=== PATIENT | female | born 1940 | race Caucasian/White ===

== ENCOUNTER → 2016-03-31 | Outpatient (CLI) | payer MEDICARE, BC ==
[2016-03-31 10:39] LABS: Calcium 9.8 mg/dL (8.4-10.2); Potassium 4.9 mmol/L (3.5-5.1); Total Bilirubin 0.6 mg/dL (0.2-1.3)
== END | disposition home or self-care (01) ==
LOC: LABWHC1 09:19
PROVIDERS: ATTEND Internal Medicine Endocrinology, Diabetes & Metabolism
DX: E11.65 Type 2 diabetes mellitus with hyperglycemia (principal)
CPT/HCPCS: 36415; 80053; 80061; 82043

== ENCOUNTER 2016-06-08 10:39 | Inpatient (IN) | payer MEDICARE, BC ==
[2016-06-08] MEDS ORDERED: IPRATROPIUM-ALBUTEROL 3 ML NEB INHALATION STA (11:06)
[2016-06-08] MEDS ORDERED: methylPREDNISolone SOD SUCCI 125 MG/2 ML VIAL IV STA (11:06)
--- NOTE | 2016-06-08 11:10 | ED ---
General Adult HPI - General Chief complaint: Upper Respiratory Infection Stated complaint: shortness of breath Time Seen by Provider: 06/08/16 11:00 Source: patient, RN notes reviewed Mode of arrival: ambulatory Limitations: no limitations - History of Present Illness Initial comments: Patient is a pleasant 76-year-old female presenting to the emergency Department with cough and difficulty breathing. Patient has chronic COPD with similar symptoms. Symptoms have progressed over the past couple of weeks. No fevers. No chest pain. No leg pain or leg swelling. Patient did see her doctor this morning who placed her on oxygen advised her to come to the emergency department. - Related Data Home Medications Medication Instructions Recorded Confirmed Diltiazem HCl [Diltiazem 24Hr ER] 180 mg PO Q24H 06/08/16 06/08/16 Esomeprazole Magnesium [NexIUM] 20 mg PO DAILY 06/08/16 06/08/16 Glimepiride [Glimepiride] 1 mg PO DAILY 06/08/16 06/08/16 Meloxicam 15 mg PO DAILY 06/08/16 06/08/16 Montelukast [Singulair] 10 mg PO DAILY 06/08/16 06/08/16 Sertraline [Zoloft] 50 mg PO DAILY 06/08/16 06/08/16 Simvastatin [Zocor] 80 mg PO HS 06/08/16 06/08/16 Warfarin Sodium [Coumadin] 5 mg PO DAILY 06/08/16 06/08/16 Allergies Allergy/AdvReac Type Severity Reaction Status Date / Time No Known Allergies Allergy Verified 06/08/16 10:59 Review of Systems ROS Statement: Those systems with pertinent positive or pertinent negative responses have been documented in the HPI. ROS Other: All systems not noted in ROS Statement are negative. Constitutional: Denies: fever, chills Eyes: Denies: eye pain ENT: Denies: ear pain Respiratory: Reports: cough, dyspnea Cardiovascular: Denies: chest pain Endocrine: Reports: fatigue Gastrointestinal: Denies: abdominal pain Genitourinary: Denies: dysuria Musculoskeletal: Denies: back pain Skin: Denies: rash Neurological: Denies: weakness Past Medical History Past Medical History: Asthma, COPD, Diabetes Mellitus, Hyperlipidemia, Hypertension History of Any Multi-Drug Resistant Organisms: None Reported Past Surgical History: Appendectomy, Back Surgery, Joint Replacement Past Psychological History: No Psychological Hx Reported Smoking Status: Never smoker Past Alcohol Use History: None Reported Past Drug Use History: None Reported General Exam Limitations: no limitations General appearance: alert, in no apparent distress Head exam: Present: atraumatic Eye exam: Present: normal appearance Neck exam: Present: normal inspection Respiratory exam: Present: decreased breath sounds Cardiovascular Exam: Present: regular rate, normal rhythm GI/Abdominal exam: Present: soft. Absent: tenderness Extremities exam: Present: normal inspection. Absent: pedal edema, calf tenderness Neurological exam: Present: alert Psychiatric exam: Present: normal affect, normal mood Skin exam: Absent: rash Course Vital Signs 06/08/16 06/08/16 06/08/16 10:53 11:40 11:54 Temperature 97.0 F L Pulse Rate 87 110 H 116 H Respiratory 18 Rate Blood Pressure 113/65 O2 Sat by Pulse 98 Oximetry Medical Decision Making - Medical Decision Making Patient reevaluated and resting comfortably in bed. Mild improvement with nebulizer. Lungs with continued decreased air exchange. Case discussed with Dr. Burns, who will admit for Dr. Rader. - Lab Data Result diagrams: 06/08/16 11:55 06/08/16 11:55 Lab Results 06/08/16 06/08/16 06/08/16 Range/Units 11:55 11:55 11:55 WBC 7.6 (3.8-10.6) k/uL RBC 4.38 (3.80-5.40) m/uL Hgb 13.1 (11.4-16.0) gm/dL Hct 40.0 (34.0-46.0) % MCV 91.2 (80.0-100.0) fL MCH 29.9 (25.0-35.0) pg MCHC 32.8 (31.0-37.0) g/dL RDW 13.6 (11.5-15.5) % Plt Count 188 (150-450) k/uL Neutrophils % 69 % Lymphocytes % 20 % Monocytes % 7 % Eosinophils % 1 % Basophils % 1 % Neutrophils # 5.3 (1.3-7.7) k/uL Lymphocytes # 1.5 (1.0-4.8) k/uL Monocytes # 0.5 (0-1.0) k/uL Eosinophils # 0.1 (0-0.7) k/uL Basophils # 0.1 (0-0.2) k/uL PT 16.9 H (9.0-12.0) sec INR 1.8 (<1.1) APTT 30.4 H (22.0-30.0) sec Sodium 141 (137-145) mmol/L Potassium 4.8 (3.5-5.1) mmol/L Chloride 106 (98-107) mmol/L Carbon Dioxide 18 L (22-30) mmol/L Anion Gap 17 mmol/L BUN 29 H (7-17) mg/dL Creatinine 2.35 H (0.52-1.04) mg/dL Est GFR (MDRD) Af Amer 24 (>60 ml/min/1.73 sqM) Est GFR (MDRD) Non-Af 20 (>60 ml/min/1.73 sqM) Glucose 156 H (74-99) mg/dL Calcium 10.2 (8.4-10.2) mg/dL Total Bilirubin 0.6 (0.2-1.3) mg/dL AST 29 (14-36) U/L ALT 25 (9-52) U/L Alkaline Phosphatase 150 H (38-126) U/L Total Creatine Kinase (30-135) U/L CK-MB (CK-2) (0.0-2.4) ng/mL CK-MB (CK-2) Rel Index Troponin I (0.000-0.034) ng/mL Total Protein 7.3 (6.3-8.2) g/dL Albumin 4.5 (3.5-5.0) g/dL 06/08/16 Range/Units 11:55 WBC (3.8-10.6) k/uL RBC (3.80-5.40) m/uL Hgb (11.4-16.0) gm/dL Hct (34.0-46.0) % MCV (80.0-100.0) fL MCH (25.0-35.0) pg MCHC (31.0-37.0) g/dL RDW (11.5-15.5) % Plt Count (150-450) k/uL Neutrophils % % Lymphocytes % % Monocytes % % Eosinophils % % Basophils % % Neutrophils # (1.3-7.7) k/uL Lymphocytes # (1.0-4.8) k/uL Monocytes # (0-1.0) k/uL Eosinophils # (0-0.7) k/uL Basophils # (0-0.2) k/uL PT (9.0-12.0) sec INR (<1.1) APTT (22.0-30.0) sec Sodium (137-145) mmol/L Potassium (3.5-5.1) mmol/L Chloride (98-107) mmol/L Carbon Dioxide (22-30) mmol/L Anion Gap mmol/L BUN (7-17) mg/dL Creatinine (0.52-1.04) mg/dL Est GFR (MDRD) Af Amer (>60 ml/min/1.73 sqM) Est GFR (MDRD) Non-Af (>60 ml/min/1.73 sqM) Glucose (74-99) mg/dL Calcium (8.4-10.2) mg/dL Total Bilirubin (0.2-1.3) mg/dL AST (14-36) U/L ALT (9-52) U/L Alkaline Phosphatase (38-126) U/L Total Creatine Kinase 64 (30-135) U/L CK-MB (CK-2) 0.4 (0.0-2.4) ng/mL CK-MB (CK-2) Rel Index 0.6 Troponin I <0.012 (0.000-0.034) ng/mL Total Protein (6.3-8.2) g/dL Albumin (3.5-5.0) g/dL - Radiology Data Radiology results: image reviewed (Chest x-ray shows no acute process) Disposition Clinical Impression: Acute exacerbation of COPD with asthma Disposition: ADMITTED IP TO THIS HOSP
[2016-06-08 12:10] LABS: Basophils # (A) 0.1 k/uL (0-0.2); Basophils % (A) 1 %; CHCM 33.1; Eosinophils # (A) 0.1 k/uL (0-0.7); Eosinophils % (A) 1 %; HDW 2.82; HGB 13.1 gm/dL (11.4-16.0); Luc # (Auto) 0.17; Luc % (Auto) 2; Lymphocytes # (A) 1.5 k/uL (1.0-4.8); Lymphocytes % (A) 20 %; MCH 29.9 pg (25.0-35.0); MCHC 32.8 g/dL (31.0-37.0); MCV 91.2 fL (80.0-100.0); Mean Platelet Volume 7.8; Monocytes # (A) 0.5 k/uL (0-1.0); Monocytes % (A) 7 %; Neutrophils # (A) 5.3 k/uL (1.3-7.7); Neutrophils % (A) 69 %; RBC 4.38 m/uL (3.80-5.40); RDW 13.6 % (11.5-15.5); WBC 7.6 k/uL (3.8-10.6); WBC (Perox) 7.98
[2016-06-08 12:39] LABS: Calcium 10.2 mg/dL (8.4-10.2); Potassium 4.8 mmol/L (3.5-5.1); Total Bilirubin 0.6 mg/dL (0.2-1.3); Total Protein 7.3 g/dL (6.3-8.2)
[2016-06-08 12:40] LABS: Creatine Kinase 64 U/L (30-135)
[2016-06-08 12:44] LABS: INR 1.8 (<1.1); Partial Thromboplastin Time 30.4 sec (22.0-30.0); Prothrombin Time 16.9 sec (9.0-12.0)
--- NOTE | 2016-06-08 12:47 | XR ---
EXAMINATION TYPE: XR chest 2V DATE OF EXAM: 06/08/2016 12:07 PM COMPARISON: NONE HISTORY: Cough for 2 weeks. Shortness of breath. TECHNIQUE: Frontal and lateral views of the chest are obtained. FINDINGS: There is underlying emphysematous change. There is no focal air space opacity, pleural eff usion, or pneumothorax seen. The cardiac silhouette size is enlarged with atherosclerotic thoracic a alexandra. The osseous structures are demineralized. Exaggerated kyphosis is present. IMPRESSION: Chronic emphysematous change and cardiomegaly without acute pulmonary process.
[2016-06-08 12:52] LABS: Creatine Kinase MB 0.4 ng/mL (0.0-2.4); Troponin I <0.012 ng/mL (0.000-0.034)
[2016-06-08] MEDS ORDERED: IPRATROPIUM-ALBUTEROL 3 ML NEB INHALATION PRN (13:02)
[2016-06-08] MEDS: IPRATROPIUM-ALBUTEROL 3 ML NEB INHALATION SCH ×3 (15:44→20:36)
[2016-06-08 17:13] LABS: Glucose,Whole Blood 363 mg/dL (75-99)
[2016-06-08] MEDS: methylPREDNISolone SOD SUCCI 125 MG/2 ML VIAL IV SCH (17:36)
[2016-06-08] MEDS: INSULIN LISPRO (humaLOG) 300 UNIT/3 ML VIAL SQ SCH ×2 (17:47→21:11)
[2016-06-08] MEDS ORDERED: ALPRAZolam 0.25 MG TAB PO PRN (19:33)
[2016-06-08 20:19] LABS: Glucose,Whole Blood 489 mg/dL (75-99)
[2016-06-08 20:20] LABS: Glucose,Whole Blood 468 mg/dL (75-99)
[2016-06-08] MEDS: SYMBICORT 160-4.5 MCG INHALER INHALATION SCH (20:36)
[2016-06-08] MEDS: ATORVASTATIN 40 MG TAB PO SCH (20:37)
[2016-06-08] MEDS: DILTIAZEM CD 180 MG CAP.ER.24H PO SCH (20:37)
[2016-06-08] MEDS ORDERED: TEMAZEPAM 15 MG CAP PO PRN (21:00)
[2016-06-08] MEDS ORDERED: LEVOFLOXACIN 500MG-D5W PMX 500 MG in DEXTROSE/WATER 1 100ML.BAG IVPB SCH (21:00)
[2016-06-08] MEDS ORDERED: INSULIN REGULAR BOLUS (FROM DRIP BAG) IV ONE (21:01)
[2016-06-08] MEDS ORDERED: INSULIN REGULAR 100 UNIT/ML VIAL IV ONE (21:09)
[2016-06-08] MEDS ORDERED: INSULIN REGULAR 100 UNIT in SODIUM CHLORIDE 0.9% 100 ML IV SCH (21:30)
[2016-06-08 22:37] LABS: Glucose,Whole Blood 420 mg/dL (75-99)
[2016-06-08 23:22] LABS: Glucose,Whole Blood 381 mg/dL (75-99)
[2016-06-08 23:30] LABS: Glucose,Whole Blood 346 mg/dL (75-99)
[2016-06-09 00:20] LABS: Glucose,Whole Blood 319 mg/dL (75-99)
[2016-06-09] MEDS: methylPREDNISolone SOD SUCCI 125 MG/2 ML VIAL IV SCH ×3 (00:39→11:18)
[2016-06-09 00:50] LABS: Glucose,Whole Blood 258 mg/dL (75-99)
[2016-06-09 00:51] LABS: Appearance,Urine Clear (Clear); Bacteria,Urine Many /hpf; Bilirubin,Urine Negative (Negative); Glucose,Urine (UA) 4+ (Negative); Ketones,Urine Negative (Negative); Leukocyte Esterase,Urine Small (Negative); Mucus,Urine Rare /hpf; Nitrite,Urine Positive (Negative); PH, Urine 5.5 (5.0-8.0); Particle Count 8579; Protein,Urine 1+ (Negative); RBC,Urine 1 /hpf (0-5); Squamous Epithelial Cell,Urine <1 /hpf (0-4); UA Billing (MACRO vs. MICRO) MICRO; Urobilinogen,Urine <2.0 mg/dL (<2.0); WBC,Urine 11 /hpf (0-5)
[2016-06-09 01:22] LABS: Glucose,Whole Blood 247 mg/dL (75-99)
[2016-06-09 03:20] LABS: Glucose,Whole Blood 178 mg/dL (75-99)
[2016-06-09 05:16] LABS: Glucose,Whole Blood 185 mg/dL (75-99)
[2016-06-09] MEDS: IPRATROPIUM-ALBUTEROL 3 ML NEB INHALATION SCH ×4 (07:11→19:48)
[2016-06-09] MEDS: SYMBICORT 160-4.5 MCG INHALER INHALATION SCH ×2 (07:11→19:48)
[2016-06-09 07:20] LABS: Glucose,Whole Blood 200 mg/dL (75-99)
[2016-06-09] MEDS ORDERED: INSULIN LISPRO (humaLOG) 300 UNIT/3 ML VIAL SQ SCH (07:30)
--- NOTE | 2016-06-09 08:21 | HP ---
DATE OF ADMISSION: The chief complaint is shortness of breath. HISTORY OF PRESENT ILLNESS: This is a 76-year-old woman with the past medical history of asthma, COPD, diabetes, hypertension, hyperlipidemia, history of DJD, history of macular degeneration, appendectomy, back surgery, being followed by Dr. Barlow in the outpatient setting, was having shortness of breath and cough. The patient came to [facility] and admitted her for further evaluation. Chest x-ray showed no evidence of pneumonia. The patient apparently was sick for the last 2 weeks and patient has taken [id number] flu medicine according to her. There is no history of any fever, rigors or chills. No history of headache, loss of consciousness or seizures. PAST MEDICAL HISTORY: History of asthma, COPD, diabetes mellitus, hypertension, hyperlipidemia, history of DJD, history of macular degeneration. Medications prior to admission include Coumadin 5 mg p.o. daily, Zocor 20 mg q.h.s., Zoloft 50 mg daily, Singulair 10 mg daily, Nexium 20 mg p.o. daily, Meloxicam 50 mg p.o. daily, Glimepiride 1 mg p.o. daily, diltiazem 24HR 180 mg p.o. q.24 hours. Allergies are none. FAMILY HISTORY: No history of heart disease or strokes in the family. SOCIAL HISTORY: No history smoking, alcohol intake. REVIEW OF SYSTEMS: ENT: No diminished hearing, diminished vision. CARDIOVASCULAR SYSTEM: No angina or palpitations. RESPIRATORY: As mentioned earlier. GI: As mentioned earlier. : No dysuria. NERVOUS SYSTEM: No numbness or weakness. ALLERGY/IMMUNOLOGY: No asthma or hayfever. MUSCULOSKELETAL: As mentioned earlier. HEMATOLOGY/ONCOLOGY: No history of anemia. ENDOCRINE: History of diabetes, no hypothyroidism. CONSTITUTIONAL: Negative. DERMATOLOGY: Negative. RHEUMATOLOGY: Negative. PSYCHIATRY: As mentioned earlier. PHYSICAL EXAM: GENERAL EXAMINATION: Pulse 106, blood pressure 133/79, respirations 18, temperature 98.4, pulse ox 94% on 3 L. HEENT: Conjunctivae normal. NECK: No jugular venous distension. CARDIOVASCULAR SYSTEM: S1, S2, muffled. RESPIRATORY: Breath sounds diminished at the bases. Bilateral scattered rhonchi, no crackles. ABDOMEN: Soft, nontender, no mass palpable. LEGS: No edema, no swelling. NERVOUS SYSTEM: Higher functions as mentioned earlier, moves all 4 limbs, no focal deficits. LYMPHATICS: No lymph node enlargement in the neck, axillae or groin. SKIN: No ulcer, rash bleeding. Labs are CBC within normal limits. INR 1.8. Creatinine is 2.35, the baseline creatinine is 1.43. Glucose was 360. ASSESSMENT: 1. Chronic obstructive pulmonary disease acute exacerbation, with acute purulent tracheobronchitis. 2. Renal failure, possible acute renal failure with acute tubular necrosis prerenal superimposed on chronic renal failure stage III possibly. 3. Coumadin monitoring. 4. History of asthma. 5. History of diabetes mellitus type 2. 6. Hypertension. 7. Hyperlipidemia. 8. History of macular degeneration. 9. History of appendectomy. 10. History of degenerative joint disease. 11. FULL CODE. RECOMMENDATION: In this 76-year-old woman who presented with multiple complex medical issues, will monitor the patient closely. Continue with the current medications. Continue with the symptomatic treatment. Will initiate bronchodilators, empiric antibiotics, IV steroids. Monitor blood sugars closely. We will cautiously avoid nephrotoxic medications. Continue with the current medications and will consult Dr. Barlow, Dr. Long. Further recommendations to follow.
[2016-06-09] MEDS ORDERED: OSELTAMIVIR 75 MG CAP PO SCH (09:00)
[2016-06-09 09:04] LABS: Basophils % (A) 0 %; CH 29.7; CHCM 32.9; Eosinophils % (A) 0 %; HCT 37.4 % (34.0-46.0); HDW 2.81; HGB 12.6 gm/dL (11.4-16.0); Luc # (Auto) 0.04; Luc % (Auto) 0; Lymphocytes # (A) 0.7 k/uL (1.0-4.8); Lymphocytes % (A) 8 %; MCH 30.7 pg (25.0-35.0); MCHC 33.8 g/dL (31.0-37.0); MCV 90.8 fL (80.0-100.0); Mean Platelet Volume 6.8; Monocytes # (A) 0.2 k/uL (0-1.0); Monocytes % (A) 2 %; Neutrophils # (A) 7.8 k/uL (1.3-7.7); Neutrophils % (A) 90 %; RBC 4.11 m/uL (3.80-5.40); RDW 13.2 % (11.5-15.5); WBC 8.7 k/uL (3.8-10.6); WBC (Perox) 9.38
[2016-06-09] MEDS: SERTRALINE 50 MG TAB PO SCH (09:06)
[2016-06-09] MEDS: PANTOPRAZOLE 40 MG TABLET PO SCH (09:06)
[2016-06-09] MEDS: MONTELUKAST 10 MG TAB PO SCH (09:06)
[2016-06-09] MEDS: GLIMEPIRIDE 1 MG TAB PO SCH (09:06)
[2016-06-09 09:14] LABS: INR 1.7 (<1.1); Prothrombin Time 16.2 sec (9.0-12.0)
[2016-06-09 09:15] LABS: Glucose,Whole Blood 399 mg/dL (75-99)
[2016-06-09 09:15] LABS: Calcium 10.2 mg/dL (8.4-10.2); Potassium 4.2 mmol/L (3.5-5.1)
[2016-06-09 11:15] LABS: Glucose,Whole Blood 343 mg/dL (75-99)
--- NOTE | 2016-06-09 12:03 | P.CNPUL ---
History of Present Illness Consult date: 06/09/16 Requesting physician: Luis Burns Reason for consult: dyspnea Chief complaint: Shortness of breath History of present illness: This is a very pleasant 76-year-old female patient who follows with Dr. Barlow as her primary care physician. She has a history of chronic bronchial asthma, diabetes mellitus, hyperlipidemia, hypertension and mild paroxysmal atrial fibrillation. She is a lifelong nonsmoker. She presented to our office yesterday after 2 weeks of shortness of breath, cough congestion, weakness. There she was sent to the emergency room. Her chest x-ray did not reveal any acute pulmonary process. She was maintaining O2 saturations in the high 90s on room air. She's been afebrile. Tachycardic. She is found to be influenza A positive. Her urinalysis reveals positive nitrates and many bacteria and elevated WBCs. He denies any UTI symptoms. She denies any nausea, vomiting or diarrhea. She has been initiated on Levaquin, IV Solu-Medrol, Symbicort and short acting bronchodilators. She was started on Tamiflu and she is feeling better today as compared to yesterday. No worsening shortness of breath, cough or congestion. Feeling stronger. Review of Systems 14 point review of system was conducted. All negative other than as mentioned in the HPI. Past Medical History Past Medical History: Asthma, COPD, Diabetes Mellitus, Hyperlipidemia, Hypertension, Osteoarthritis (OA) Additional Past Medical History / Comment(s): MAC DEGENERATION, "HEART BEATS FAST AT TIMES-I TAKE MEDICATION FOR IT" History of Any Multi-Drug Resistant Organisms: None Reported Past Surgical History: Appendectomy, Back Surgery, Joint Replacement Additional Past Surgical History / Comment(s): MARCIE KNEE REPALCMENTS, MARCIE CATARACTS, BLEPHROPLASTY Past Anesthesia/Blood Transfusion Reactions: No Reported Reaction Past Psychological History: No Psychological Hx Reported Additional Psychological History / Comment(s): PT LIVES IN OWN SINGLE LEVEL HOME GARY HAS E [employer] STEPS. LIVES WITH A FRIEND THAT HELPS HER OUT D/T POOR VISION. PT ISINDEPENDANT, NO OUTSDIE SERVICES. HAS A NEBULIZER AT HOME. PT WORKED 28 YEARS FOR [employer]. Smoking Status: Never smoker Past Alcohol Use History: None Reported Past Drug Use History: None Reported Medications and Allergies Home Medications Medication Instructions Recorded Confirmed Type Diltiazem HCl [Diltiazem 24Hr ER] 180 mg PO Q24H 06/08/16 06/08/16 History Esomeprazole Magnesium [NexIUM] 20 mg PO DAILY 06/08/16 06/08/16 History Glimepiride [Glimepiride] 1 mg PO DAILY 06/08/16 06/08/16 History Meloxicam 15 mg PO DAILY 06/08/16 06/08/16 History Montelukast [Singulair] 10 mg PO DAILY 06/08/16 06/08/16 History Sertraline [Zoloft] 50 mg PO DAILY 06/08/16 06/08/16 History Simvastatin [Zocor] 80 mg PO HS 06/08/16 06/08/16 History Warfarin Sodium [Coumadin] 5 mg PO DAILY 06/08/16 06/08/16 History Allergies Allergy/AdvReac Type Severity Reaction Status Date / Time No Known Allergies Allergy Verified 06/08/16 10:59 Physical Exam Vitals: Vital Signs Temp Pulse Pulse Pulse Resp BP BP 06/09/16 11:02 94 06/09/16 10:52 92 06/09/16 08:00 20 06/09/16 07:21 94 06/09/16 07:11 94 06/09/16 07:00 96.9 F L 112 H 20 153/65 06/09/16 00:00 117 H 16 06/08/16 23:00 97.6 F 117 H 16 149/90 06/08/16 20:50 100 06/08/16 20:36 100 06/08/16 17:06 106 H 06/08/16 16:55 106 H 06/08/16 16:00 110 H 20 06/08/16 15:49 98.4 F 110 H 18 133/79 06/08/16 13:35 98.3 F 102 H 18 187/81 Pulse Ox 06/09/16 11:02 06/09/16 10:52 06/09/16 08:00 06/09/16 07:21 06/09/16 07:11 06/09/16 07:00 96 06/09/16 00:00 06/08/16 23:00 95 06/08/16 20:50 06/08/16 20:36 06/08/16 17:06 06/08/16 16:55 06/08/16 16:00 06/08/16 15:49 95 06/08/16 13:35 97 Intake and Output 06/08/16 06/09/16 06/09/16 22:59 06:59 14:59 Intake Total 17.5 67.101 16.399 Balance 17.5 67.101 16.399 Intake: Intake, IV Titration 17.5 67.101 16.399 Amount Insulin Regular 100 unit 17.5 67.101 16.399 In Sodium Chloride 0.9% 100 ml @ Titrate IV .Q0M [facility] Rx#:[id number] Other: Voiding Method Toilet Toilet Toilet # Voids 1 2 # Bowel Movements 1 Weight 87.543 kg GENERAL EXAM: Alert, active, comfortable in no apparent distress. HEAD: Normocephalic. EYES: Normal reaction of pupils, equal size. Macular degeneration. NOSE: Clear with pink turbinates. THROAT: No erythema or exudates. NECK: No masses, no JVD. CHEST: No chest wall deformity. LUNGS: Equal air entry with no crackles, wheeze, rhonchi or dullness. CVS: S1 and S2 normal with no audible murmurs, regular rhythm. ABDOMEN: No hepatosplenomegaly, normal bowel sounds, no guarding or rigidity. SPINE: No scoliosis or deformity SKIN: No rashes CENTRAL NERVOUS SYSTEM: No focal deficits, tone is normal in all 4 extremities. Extremities: There is no significant peripheral edema. No clubbing, no cyanosis. Peripheral pulses are intact. Results - Laboratory Findings CBC and BMP: 06/09/16 08:12 06/09/16 08:12 PT/INR, D-dimer PT 16.2 sec (9.0-12.0) H 06/09/16 08:12 INR 1.7 (<1.1) 06/09/16 08:12 Abnormal lab findings: Abnormal Labs 06/08/16 06/08/16 06/08/16 17:08 19:37 20:17 Neutrophils # Lymphocytes # PT Carbon Dioxide BUN Creatinine Glucose POC Glucose (mg/dL) 363 H 489 H Urine Protein Urine Glucose (UA) Urine Blood Urine Nitrite Ur Leukocyte Esterase Urine WBC Urine Bacteria Urine Mucus Influenza Type A RNA Detected H 06/08/16 06/08/16 06/08/16 20:18 22:26 23:02 Neutrophils # Lymphocytes # PT Carbon Dioxide BUN Creatinine Glucose POC Glucose (mg/dL) 468 H 420 H 381 H Urine Protein Urine Glucose (UA) Urine Blood Urine Nitrite Ur Leukocyte Esterase Urine WBC Urine Bacteria Urine Mucus Influenza Type A RNA 06/08/16 06/09/16 06/09/16 23:28 00:01 00:22 Neutrophils # Lymphocytes # PT Carbon Dioxide BUN Creatinine Glucose POC Glucose (mg/dL) 346 H 319 H Urine Protein 1+ H Urine Glucose (UA) 4+ H Urine Blood Trace H Urine Nitrite Positive H Ur Leukocyte Esterase Small H Urine WBC 11 H Urine Bacteria Many H Urine Mucus Rare H Influenza Type A RNA 06/09/16 06/09/16 06/09/16 00:30 01:02 03:00 Neutrophils # Lymphocytes # PT Carbon Dioxide BUN Creatinine Glucose POC Glucose (mg/dL) 258 H 247 H 178 H Urine Protein Urine Glucose (UA) Urine Blood Urine Nitrite Ur Leukocyte Esterase Urine WBC Urine Bacteria Urine Mucus Influenza Type A RNA 06/09/16 06/09/16 06/09/16 05:04 07:17 08:12 Neutrophils # 7.8 H Lymphocytes # 0.7 L PT Carbon Dioxide BUN Creatinine Glucose POC Glucose (mg/dL) 185 H 200 H Urine Protein Urine Glucose (UA) Urine Blood Urine Nitrite Ur Leukocyte Esterase Urine WBC Urine Bacteria Urine Mucus Influenza Type A RNA 06/09/16 06/09/16 06/09/16 08:12 08:12 09:00 Neutrophils # Lymphocytes # PT 16.2 H Carbon Dioxide 16 L BUN 37 H Creatinine 1.81 H Glucose 270 H POC Glucose (mg/dL) 399 H Urine Protein Urine Glucose (UA) Urine Blood Urine Nitrite Ur Leukocyte Esterase Urine WBC Urine Bacteria Urine Mucus Influenza Type A RNA 06/09/16 11:05 Neutrophils # Lymphocytes # PT Carbon Dioxide BUN Creatinine Glucose POC Glucose (mg/dL) 343 H Urine Protein Urine Glucose (UA) Urine Blood Urine Nitrite Ur Leukocyte Esterase Urine WBC Urine Bacteria Urine Mucus Influenza Type A RNA - Diagnostic Findings Chest x-ray: image reviewed (No acute pulmonary process) Assessment and Plan Plan: Impression: #1 Acute exacerbation of chronic mild intermittent asthma complicated by influenza A. #2 Influenza A. #3 Acute renal failure secondary to dehydration, improved currently 1.81. #4 Diabetes mellitus, type II. #5 Hyperlipidemia. #6 Macular degeneration. #7 Paroxysmal atrial fibrillation, anticoagulated with warfarin and rate control with Cardizem. #8 Urinary tract infection, culture pending. Plan: The patient was seen and evaluated by Dr. Long. Her chest x-ray and labs were reviewed. We will continue with her current antibiotics, Symbicort, IV Solu-Medrol, short acting bronchodilators and Singulair. She is on Tamiflu. We 'll continue to hydrate the patient. She remains anticoagulated with warfarin. She is on Protonix for GI prophylaxis. We will increase her activity as tolerated. We will continue to follow make further recommendations based on her clinical status. Time with Patient: Greater than 30
[2016-06-09 13:18] LABS: Hemoglobin A1C 6.7 % (4.2-6.1)
[2016-06-09 13:26] LABS: Glucose,Whole Blood 264 mg/dL (75-99)
[2016-06-09 15:36] LABS: Glucose,Whole Blood 324 mg/dL (75-99)
[2016-06-09] MEDS ORDERED: INSULIN GLARGINE 100 UNIT/ML 10 ML VIAL SQ ONE (15:59)
[2016-06-09] MEDS: SODIUM CHLORIDE 0.9% 1,000 ML IV SCH (16:23)
[2016-06-09 17:40] LABS: Glucose,Whole Blood 331 mg/dL (75-99)
[2016-06-09] MEDS ORDERED: WARFARIN 5 MG TAB PO SCH (18:00)
[2016-06-09 20:26] LABS: Glucose,Whole Blood 391 mg/dL (75-99)
[2016-06-09] MEDS: ATORVASTATIN 40 MG TAB PO SCH (20:29)
[2016-06-09] MEDS: DILTIAZEM CD 180 MG CAP.ER.24H PO SCH (20:29)
[2016-06-09] MEDS: DOXYCYCLINE 50 MG CAP PO SCH (20:29)
[2016-06-09] MEDS ORDERED: INSULIN LISPRO (humaLOG) 300 UNIT/3 ML VIAL SQ ONE (20:39)
[2016-06-09] MEDS: INSULIN LISPRO (humaLOG) 300 UNIT/3 ML VIAL SQ SCH (20:43)
[2016-06-09] MEDS ORDERED: LEVOFLOXACIN 250MG-D5W PMX 250 MG in DEXTROSE/WATER 1 50ML.BAG IVPB SCH (21:00)
--- NOTE | 2016-06-09 22:38 | P.PN ---
Subjective Date of service 06/09/2016 Progress note being dictated for . Interval history: This is a 76-year-old female admitted with acute exacerbation of asthma, positive influenza A, dehydration with acute renal failure, and multiple other medical issues. Maintained on nebulized bronchodilators, steroids, Levaquin, Tamiflu. Feeling much better today, breathing better. Nonproductive cough. Maintaining O2 sats of 95% on 2 L nasal cannula. Afebrile. Creatinine improving, currently 1.81 Denies chest pain, palpitations, or increased in shortness of breath. UA noted, no urinary symptoms. Afebrile. Normal WBC. Anticoagulated on Coumadin, INR 1.7. Objective - Vital Signs Vital signs: Vital Signs Temp 96.9 F L 06/09/16 07:00 Pulse 96 06/09/16 15:45 Resp 20 06/09/16 08:00 BP 153/65 06/09/16 07:00 Pulse Ox 96 06/09/16 07:00 Intake & Output 06/08/16 06/09/16 06/09/16 18:59 06:59 18:59 Intake Total 84.601 16.399 Balance 84.601 16.399 Weight 87.543 kg Intake: Intake, IV Titration 84.601 16.399 Amount Insulin Regular 100 unit 84.601 16.399 In Sodium Chloride 0.9% 100 ml @ Titrate IV .Q0M [facility] Rx#:[id number] Other: Voiding Method Toilet Toilet Toilet # Voids 2 # Bowel Movements 1 - Exam PHYSICAL EXAM: VITAL SIGNS: As above GENERAL: [Sitting up in bed, no acute distress] HEENT: [Pupils equal conjunctiva normal.] NECK: [Supple, no JVD] RESPIRATORY EFFORT:[Normal] LUNGS: [Lungs clear, no wheezes crackles or rhonchi] CARDIOVASCULAR[regular S1 and S2, no murmurs, rubs or gallops] GI: [Abdomen soft, nontender, positive bowel sounds.] PSYCH: [Alert and oriented -3, mood and affect normal.] NEURO: [No focal deficits, moves all 4 extremities, strength and sensation grossly intact] - Labs CBC & Chem 7: 06/09/16 08:12 06/09/16 08:12 Labs: Abnormal Lab Results - Last 24 Hours (Table) 06/08/16 06/08/16 06/08/16 Range/Units 17:08 19:37 20:17 Neutrophils # (1.3-7.7) k/uL Lymphocytes # (1.0-4.8) k/uL PT (9.0-12.0) sec Carbon Dioxide (22-30) mmol/L BUN (7-17) mg/dL Creatinine (0.52-1.04) mg/dL Glucose (74-99) mg/dL POC Glucose (mg/dL) 363 H 489 H (75-99) mg/dL Hemoglobin A1c (4.2-6.1) % Urine Protein (Negative) Urine Glucose (UA) (Negative) Urine Blood (Negative) Urine Nitrite (Negative) Ur Leukocyte Esterase (Negative) Urine WBC (0-5) /hpf Urine Bacteria (None) /hpf Urine Mucus (None) /hpf Influenza Type A RNA Detected H (Not Detectd) 06/08/16 06/08/16 06/08/16 Range/Units 20:18 22:26 23:02 Neutrophils # (1.3-7.7) k/uL Lymphocytes # (1.0-4.8) k/uL PT (9.0-12.0) sec Carbon Dioxide (22-30) mmol/L BUN (7-17) mg/dL Creatinine (0.52-1.04) mg/dL Glucose (74-99) mg/dL POC Glucose (mg/dL) 468 H 420 H 381 H (75-99) mg/dL Hemoglobin A1c (4.2-6.1) % Urine Protein (Negative) Urine Glucose (UA) (Negative) Urine Blood (Negative) Urine Nitrite (Negative) Ur Leukocyte Esterase (Negative) Urine WBC (0-5) /hpf Urine Bacteria (None) /hpf Urine Mucus (None) /hpf Influenza Type A RNA (Not Detectd) 06/08/16 06/09/16 06/09/16 Range/Units 23:28 00:01 00:22 Neutrophils # (1.3-7.7) k/uL Lymphocytes # (1.0-4.8) k/uL PT (9.0-12.0) sec Carbon Dioxide (22-30) mmol/L BUN (7-17) mg/dL Creatinine (0.52-1.04) mg/dL Glucose (74-99) mg/dL POC Glucose (mg/dL) 346 H 319 H (75-99) mg/dL Hemoglobin A1c (4.2-6.1) % Urine Protein 1+ H (Negative) Urine Glucose (UA) 4+ H (Negative) Urine Blood Trace H (Negative) Urine Nitrite Positive H (Negative) Ur Leukocyte Esterase Small H (Negative) Urine WBC 11 H (0-5) /hpf Urine Bacteria Many H (None) /hpf Urine Mucus Rare H (None) /hpf Influenza Type A RNA (Not Detectd) 06/09/16 06/09/16 06/09/16 Range/Units 00:30 01:02 03:00 Neutrophils # (1.3-7.7) k/uL Lymphocytes # (1.0-4.8) k/uL PT (9.0-12.0) sec Carbon Dioxide (22-30) mmol/L BUN (7-17) mg/dL Creatinine (0.52-1.04) mg/dL Glucose (74-99) mg/dL POC Glucose (mg/dL) 258 H 247 H 178 H (75-99) mg/dL Hemoglobin A1c (4.2-6.1) % Urine Protein (Negative) Urine Glucose (UA) (Negative) Urine Blood (Negative) Urine Nitrite (Negative) Ur Leukocyte Esterase (Negative) Urine WBC (0-5) /hpf Urine Bacteria (None) /hpf Urine Mucus (None) /hpf Influenza Type A RNA (Not Detectd) 06/09/16 06/09/16 06/09/16 Range/Units 05:04 07:17 08:12 Neutrophils # (1.3-7.7) k/uL Lymphocytes # (1.0-4.8) k/uL PT (9.0-12.0) sec Carbon Dioxide (22-30) mmol/L BUN (7-17) mg/dL Creatinine (0.52-1.04) mg/dL Glucose (74-99) mg/dL POC Glucose (mg/dL) 185 H 200 H (75-99) mg/dL Hemoglobin A1c 6.7 H (4.2-6.1) % Urine Protein (Negative) Urine Glucose (UA) (Negative) Urine Blood (Negative) Urine Nitrite (Negative) Ur Leukocyte Esterase (Negative) Urine WBC (0-5) /hpf Urine Bacteria (None) /hpf Urine Mucus (None) /hpf Influenza Type A RNA (Not Detectd) 06/09/16 06/09/16 06/09/16 Range/Units 08:12 08:12 08:12 Neutrophils # 7.8 H (1.3-7.7) k/uL Lymphocytes # 0.7 L (1.0-4.8) k/uL PT 16.2 H (9.0-12.0) sec Carbon Dioxide 16 L (22-30) mmol/L BUN 37 H (7-17) mg/dL Creatinine 1.81 H (0.52-1.04) mg/dL Glucose 270 H (74-99) mg/dL POC Glucose (mg/dL) (75-99) mg/dL Hemoglobin A1c (4.2-6.1) % Urine Protein (Negative) Urine Glucose (UA) (Negative) Urine Blood (Negative) Urine Nitrite (Negative) Ur Leukocyte Esterase (Negative) Urine WBC (0-5) /hpf Urine Bacteria (None) /hpf Urine Mucus (None) /hpf Influenza Type A RNA (Not Detectd) 06/09/16 06/09/16 06/09/16 Range/Units 09:00 11:05 13:20 Neutrophils # (1.3-7.7) k/uL Lymphocytes # (1.0-4.8) k/uL PT (9.0-12.0) sec Carbon Dioxide (22-30) mmol/L BUN (7-17) mg/dL Creatinine (0.52-1.04) mg/dL Glucose (74-99) mg/dL POC Glucose (mg/dL) 399 H 343 H 264 H (75-99) mg/dL Hemoglobin A1c (4.2-6.1) % Urine Protein (Negative) Urine Glucose (UA) (Negative) Urine Blood (Negative) Urine Nitrite (Negative) Ur Leukocyte Esterase (Negative) Urine WBC (0-5) /hpf Urine Bacteria (None) /hpf Urine Mucus (None) /hpf Influenza Type A RNA (Not Detectd) 06/09/16 Range/Units 15:21 Neutrophils # (1.3-7.7) k/uL Lymphocytes # (1.0-4.8) k/uL PT (9.0-12.0) sec Carbon Dioxide (22-30) mmol/L BUN (7-17) mg/dL Creatinine (0.52-1.04) mg/dL Glucose (74-99) mg/dL POC Glucose (mg/dL) 324 H (75-99) mg/dL Hemoglobin A1c (4.2-6.1) % Urine Protein (Negative) Urine Glucose (UA) (Negative) Urine Blood (Negative) Urine Nitrite (Negative) Ur Leukocyte Esterase (Negative) Urine WBC (0-5) /hpf Urine Bacteria (None) /hpf Urine Mucus (None) /hpf Influenza Type A RNA (Not Detectd) Assessment and Plan Plan: 1. [Acute exacerbation of chronic mild intermittent asthma with influenza A. 2. Acute renal failure with acute tubular necrosis prerenal superimposed on possible chronic renal failure stage III. Acute renal failure related to dehydration 3. [Proximal atrial fibrillation on Coumadin monitoring]. 4. [Diabetes mellitus type 2, uncontrolled on steroids]. 5. Hypertension. 6. Hyperlipidemia. 7. Macular degeneration 8. Degenerative joint disease. 9. Doubt acute UTI, asymptomatic bacturemia. Plan: Continue on current medication regime , nebulized bronchodilators, steroids, antibiotics, Tamiflu monitoring and symptomatic treatment. IV fluids as ordered, related to renal function. Close monitoring of renal function with repeat labs ordered for a.m. IV steroids discontinued, oral steroids to begin in a.m. Insulin drip weaned off, Lantus administered in addition to Humalog sliding scale.close monitoring of Accu-Cheks. Patient stated she ran out of her beta delfin 2 weeks prior to admission: RN verifying with [facility]. Discharge planning in progress for tomorrow. The impression and plan of care has been dictated as directed. : I performed a H&P examination of this patient and discussed the same with the dictator. I agree with the dictator's note. Any additional findings/opinions/ etc. will be noted.
[2016-06-10] MEDS: SODIUM CHLORIDE 0.9% 1,000 ML IV SCH (03:01)
[2016-06-10] MEDS ORDERED: INSULIN LISPRO (humaLOG) 300 UNIT/3 ML VIAL SQ SCH (07:30)
[2016-06-10 07:51] LABS: Glucose,Whole Blood 289 mg/dL (75-99)
[2016-06-10] MEDS ORDERED: INSULIN LISPRO (humaLOG) 300 UNIT/3 ML VIAL SQ ONE ×2 (08:16→12:35)
[2016-06-10 08:18] LABS: INR 1.8 (<1.1); Prothrombin Time 17.3 sec (9.0-12.0)
[2016-06-10 08:19] LABS: Basophils % (A) 0 %; CHCM 32.3; Eosinophils % (A) 0 %; HCT 34.9 % (34.0-46.0); HDW 2.71; Luc # (Auto) 0.07; Luc % (Auto) 0; Lymphocytes # (A) 0.8 k/uL (1.0-4.8); Lymphocytes % (A) 5 %; MCH 29.5 pg (25.0-35.0); MCHC 31.6 g/dL (31.0-37.0); MCV 93.5 fL (80.0-100.0); Mean Platelet Volume 7.2; Monocytes # (A) 0.5 k/uL (0-1.0); Monocytes % (A) 3 %; Neutrophils # (A) 15.4 k/uL (1.3-7.7); Neutrophils % (A) 92 %; RBC 3.73 m/uL (3.80-5.40); RDW 13.6 % (11.5-15.5); WBC 16.8 k/uL (3.8-10.6); WBC (Perox) 17.93
[2016-06-10] MEDS: DOXYCYCLINE 50 MG CAP PO SCH (08:27)
[2016-06-10] MEDS: PANTOPRAZOLE 40 MG TABLET PO SCH (08:28)
[2016-06-10] MEDS: MONTELUKAST 10 MG TAB PO SCH (08:28)
[2016-06-10] MEDS: GLIMEPIRIDE 1 MG TAB PO SCH (08:28)
[2016-06-10] MEDS: SERTRALINE 50 MG TAB PO SCH (08:29)
[2016-06-10 08:44] LABS: Calcium 9.6 mg/dL (8.4-10.2)
[2016-06-10 08:47] VITALS: BP 152/61; RESP 16; TEMP 97.4
[2016-06-10] MEDS: SYMBICORT 160-4.5 MCG INHALER INHALATION SCH (08:49)
[2016-06-10] MEDS: IPRATROPIUM-ALBUTEROL 3 ML NEB INHALATION SCH ×2 (08:49→11:01)
[2016-06-10] MEDS ORDERED: predniSONE 20 MG TAB PO SCH (09:00)
[2016-06-10] MEDS ORDERED: OSELTAMIVIR 60 MG/10 ML ORAL SYRINGE PO SCH (09:00)
[2016-06-10 11:16] VITALS: PULSE 78
[2016-06-10 11:55] LABS: Glucose,Whole Blood 256 mg/dL (75-99)
--- NOTE | 2016-06-10 13:59 | P.PN ---
Subjective This is a very pleasant 76-year-old female patient who follows with Dr. Barlow as her primary care physician. She has a history of chronic bronchial asthma, diabetes mellitus, hyperlipidemia, hypertension and paroxysmal atrial fibrillation. She is a lifelong nonsmoker. She presented to our office yesterday after 2 weeks of shortness of breath, cough congestion, weakness. There she was sent to the emergency room. Her chest x-ray did not reveal any acute pulmonary process. She was maintaining O2 saturations in the high 90s on room air. She's been afebrile. Tachycardic. She is found to be influenza A positive. Her urinalysis reveals positive nitrates and many bacteria and elevated WBCs. He denies any UTI symptoms. She denies any nausea, vomiting or diarrhea. She has been initiated on Levaquin, IV Solu-Medrol, Symbicort and short acting bronchodilators. She was started on Tamiflu and she is feeling better today as compared to yesterday. No worsening shortness of breath, cough or congestion. Feeling stronger. The patient is seen again today 06/10/2016 in follow-up. She is awake and alert in no acute distress. She states she is breathing much easier today as compared to yesterday. She is anxious to go home. She is retaining O2 saturations in the upper 90s on room air. She is afebrile. Her renal failure is improving creatinine 1.62. Objective - Vital Signs Vital signs: Vital Signs Temp 97.4 F L 06/10/16 07:00 Pulse 78 06/10/16 11:15 Resp 16 06/10/16 07:00 BP 152/61 06/10/16 07:00 Pulse Ox 97 06/10/16 07:00 Intake & Output 06/09/16 06/10/16 06/10/16 18:59 06:59 18:59 Intake Total 731.034 7401 Balance 844.126 4584 Intake: Intake, IV Titration 16.399 1200 Amount Insulin Regular 100 unit 16.399 In Sodium Chloride 0.9% 100 ml @ Titrate IV .Q0M [facility] Rx#:[id number] Sodium Chloride 0.9% 1, 1200 000 ml @ 100 mls/hr IV . Q10H [facility] Rx#:[id number] Oral 850 Other: Voiding Method Toilet Toilet # Voids 2 1 - Exam GENERAL EXAM: Alert, active, comfortable in no apparent distress. HEAD: Normocephalic. EYES: Normal reaction of pupils, equal size. NOSE: Clear with pink turbinates. THROAT: No erythema or exudates. NECK: No masses, no JVD. CHEST: No chest wall deformity. LUNGS: Equal air entry with no crackles, wheeze, rhonchi or dullness. CVS: S1 and S2 normal with no audible mumurs, regular rhythm. ABDOMEN: No hepatosplenomegaly, normal bowel sounds, no guarding or rigidity. SPINE: No scoliosis or deformity SKIN: No rashes CENTRAL NERVOUS SYSTEM: No focal deficits, tone is normal in all 4 extremities. Extremities: There is no significant peripheral edema. No clubbing, no cyanosis. Peripheral pulses are intact. - Labs CBC & Chem 7: 06/10/16 07:44 06/10/16 07:44 Labs: Abnormal Lab Results - Last 24 Hours (Table) 06/09/16 06/09/16 06/09/16 Range/Units 08:12 15:21 17:37 WBC (3.8-10.6) k/uL RBC (3.80-5.40) m/uL Hgb (11.4-16.0) gm/dL Neutrophils # (1.3-7.7) k/uL Lymphocytes # (1.0-4.8) k/uL PT (9.0-12.0) sec Chloride (98-107) mmol/L Carbon Dioxide (22-30) mmol/L BUN (7-17) mg/dL Creatinine (0.52-1.04) mg/dL Glucose (74-99) mg/dL POC Glucose (mg/dL) 324 H 331 H (75-99) mg/dL Hemoglobin A1c 6.7 H (4.2-6.1) % 06/09/16 06/10/16 06/10/16 Range/Units 20:25 07:44 07:44 WBC 16.8 H (3.8-10.6) k/uL RBC 3.73 L (3.80-5.40) m/uL Hgb 11.0 L (11.4-16.0) gm/dL Neutrophils # 15.4 H (1.3-7.7) k/uL Lymphocytes # 0.8 L (1.0-4.8) k/uL PT 17.3 H (9.0-12.0) sec Chloride (98-107) mmol/L Carbon Dioxide (22-30) mmol/L BUN (7-17) mg/dL Creatinine (0.52-1.04) mg/dL Glucose (74-99) mg/dL POC Glucose (mg/dL) 391 H (75-99) mg/dL Hemoglobin A1c (4.2-6.1) % 06/10/16 06/10/16 06/10/16 Range/Units 07:44 07:49 11:04 WBC (3.8-10.6) k/uL RBC (3.80-5.40) m/uL Hgb (11.4-16.0) gm/dL Neutrophils # (1.3-7.7) k/uL Lymphocytes # (1.0-4.8) k/uL PT (9.0-12.0) sec Chloride 109 H (98-107) mmol/L Carbon Dioxide 19 L (22-30) mmol/L BUN 43 H (7-17) mg/dL Creatinine 1.62 H (0.52-1.04) mg/dL Glucose 298 H (74-99) mg/dL POC Glucose (mg/dL) 289 H 256 H (75-99) mg/dL Hemoglobin A1c (4.2-6.1) % Assessment and Plan Plan: Impression: #1 Acute exacerbation of chronic mild intermittent asthma complicated by influenza A. #2 Influenza A. #3 Acute renal failure secondary to dehydration, improved currently 1.81. #4 Diabetes mellitus, type II. #5 Hyperlipidemia. #6 Macular degeneration. #7 Paroxysmal atrial fibrillation, anticoagulated with warfarin and rate control with Cardizem. #8 Urinary tract infection, culture pending. Plan: The patient was seen and evaluated by Dr. Long. She is cleared for discharge from the pulmonary standpoint. She'll complete her prednisone taper, antibiotics and Tamiflu. She'll follow up with Dr. Barlow in our office in 1 week's time. She is however encouraged to call sooner with any recurrence of symptoms or other questions or concerns.
--- NOTE | 2016-06-10 17:23 | P.DS ---
Providers Date of admission: 06/08/16 13:02 Expected date of discharge: 06/10/16 Attending physician: MD Dr. Sayda Gomez Consults: Adeline Clement, Pulmonary Primary care physician: [facility] Course: Final Diagnoses: 1. [Acute exacerbation of chronic mild intermittent asthma with influenza A. 2. Acute renal failure with acute tubular necrosis prerenal superimposed on possible chronic renal failure stage III. Acute renal failure related to dehydration 3. [Proximal atrial fibrillation on Coumadin monitoring]. 4. [Diabetes mellitus type 2, uncontrolled on steroids]. 5. Hypertension. 6. Hyperlipidemia. 7. Macular degeneration 8. Degenerative joint disease. 9. Doubt acute UTI, asymptomatic bacturemia. Hospital course:This is a 76-year-old female admitted with acute exacerbation of asthma, positive influenza A, dehydration with acute renal failure, and multiple other medical issues. Evaluated by pulmonary. Maintained on nebulized bronchodilators, steroids, Levaquin, Tamiflu and IV fluids. Significant clinical improvement. Cleared by pulmonary for discharge. Patient is being discharged home in a stable condition with guarded prognosis. The impression and plan of care has been dictated as directed. : I performed a H&P examination of this patient and discussed the same with the dictator. I agree with the dictator's note. Any additional findings/opinions/ etc. will be noted. Patient Condition at Discharge: Stable Plan - Discharge Summary New Discharge Prescriptions: Albuterol Sulfate [Proventil Hfa] 2 puff INHALATION QID #1 inhaler Budesonide-Formot 160-4.5 Mcg [Symbicort 160-4.5 Mcg Inhaler] 2 puff INHALATION RT-BID #1 inh Doxycycline [Vibramycin] 100 mg PO BID #10 cap Oseltamivir 6Mg/ml Oral Susp [Tamiflu] 30 mg PO DAILY #1.5 oral.syrg predniSONE 10 mg PO DIRECTED #30 tab Discharge Medication List Diltiazem HCl [Diltiazem 24Hr ER] 180 mg PO Q24H 06/08/16 [History] Esomeprazole Magnesium [NexIUM] 20 mg PO DAILY 06/08/16 [History] Glimepiride 1 mg PO DAILY 06/08/16 [History] Montelukast [Singulair] 10 mg PO DAILY 06/08/16 [History] Sertraline [Zoloft] 50 mg PO DAILY 06/08/16 [History] Simvastatin [Zocor] 80 mg PO HS 06/08/16 [History] Warfarin Sodium [Coumadin] 5 mg PO DAILY 06/08/16 [History] Albuterol Sulfate [Proventil Hfa] 2 puff INHALATION QID #1 inhaler 06/10/16 [Rx] Budesonide-Formot 160-4.5 Mcg [Symbicort 160-4.5 Mcg Inhaler] 2 puff INHALATION RT-BID #1 inh 06/10/16 [Rx] Doxycycline [Vibramycin] 100 mg PO BID #10 cap 06/10/16 [Rx] Oseltamivir 6Mg/ml Oral Susp [Tamiflu] 30 mg PO DAILY #1.5 oral.syrg 06/10/16 [ Rx] predniSONE 10 mg PO DIRECTED #30 tab 06/10/16 [Rx] Follow up Appointment(s)/Referral(s): Elliot Barlow DO [Primary Care Provider] - 06/24/16 9:45 am Ambulatory/Diagnostic Orders: Complete Blood Count w/diff [LAB.AMB] Time Frame: 3 Days, Location: Determined By Patient Prothrombin Time INR [LAB.AMB] Time Frame: 06/14/16, Location: Determined By Patient Patient Instructions/Handouts: Doxycycline (By mouth), Prednisone (By mouth), Oseltamivir (By mouth), Budesonide/Formoterol (By breathing), Influenza (DC), COPD (Chronic Obstructive Pulmonary Disease) (DC) Activity/Diet/Wound Care/Special Instructions: [facility]-[phone] DIet: consist. Carb accu cheks achs Activity; Limited TIll F/U Discharge Disposition: HOME SELF-CARE
== END 2016-06-10 14:10 | disposition home health service (06) | DRG 193 ==
LOC: EC 10:39 → 5MS5E 13:02
PROVIDERS: ADMIT Internal Medicine; ATTEND Internal Medicine
DX: J10.1 Influenza due to other identified influenza virus with other respiratory manifestations (principal); N17.0 Acute kidney failure with tubular necrosis; J45.21 Mild intermittent asthma with (acute) exacerbation; E11.65 Type 2 diabetes mellitus with hyperglycemia; E86.0 Dehydration; I48.0 Paroxysmal atrial fibrillation; J44.9 Chronic obstructive pulmonary disease, unspecified; E78.5 Hyperlipidemia, unspecified; I12.9 Hypertensive chronic kidney disease with stage 1 through stage 4 chronic kidney disease, or unspecified chronic kidney disease; H35.30 Unspecified macular degeneration; H54.7 Unspecified visual loss; M19.90 Unspecified osteoarthritis, unspecified site; N18.3 Chronic kidney disease, stage 3 (moderate); R82.71 Bacteriuria; T38.0X5A Adverse effect of glucocorticoids and synthetic analogues, initial encounter; Z79.84 Long term (current) use of oral hypoglycemic drugs; Z79.01 Long term (current) use of anticoagulants; Z79.899 Other long term (current) drug therapy; Z96.653 Presence of artificial knee joint, bilateral; Y92.239 Unspecified place in hospital as the place of occurrence of the external cause
CPT/HCPCS: 36415; 71020; 80048; 80053; 81001; 82550; 82553; 83036; 84484; 85025; 85610; 85730; 87502; 93005; 94640; 96374; 99214; 99285

== ENCOUNTER → 2016-10-25 | Outpatient (CLI) | payer MEDICARE, BC ==
[2016-10-25 11:47] LABS: Calcium 9.5 mg/dL (8.4-10.2); Potassium 4.6 mmol/L (3.5-5.1); Total Bilirubin 0.4 mg/dL (0.2-1.3); Total Protein 6.6 g/dL (6.3-8.2)
[2016-10-25 16:15] LABS: Urine Creatinine 71.2 mg/dL
== END | disposition home or self-care (01) ==
LOC: LABWHC1 09:42
PROVIDERS: ATTEND Internal Medicine Endocrinology, Diabetes & Metabolism
DX: E11.65 Type 2 diabetes mellitus with hyperglycemia (principal); E78.5 Hyperlipidemia, unspecified; I10 Essential (primary) hypertension
CPT/HCPCS: 36415; 80053; 80061; 82043; 82570; 83036

== ENCOUNTER → 2017-01-18 | Outpatient (CLI) | payer MEDICARE, BC ==
--- NOTE | 2017-01-18 16:43 | NM ---
EXAMINATION TYPE: NM pul vent and perfuse DATE OF EXAM: 01/18/2017 COMPARISON: NONE HISTORY: TECHNIQUE: Utilizing inhalation of 65.8 mCi Tc 99m DTPA aerosol and intravenous injection of 5.4 mCi of Tc 99m MAA, ventilation and perfusion images are acquired post injection in multiple projections. FINDINGS: There are very small subsegmental peripheral matching defects in both lungs. There is no segmental ty pe perfusion defect. The remainder of exam is unremarkable. IMPRESSION: There is evidence for some mild airway disease. There is a low probability of pulmonary embolism.
== END | disposition home or self-care (01) ==
LOC: RADCTMAIN 14:24
PROVIDERS: ATTEND Nurse Practitioner Adult Health
DX: I26.99 Other pulmonary embolism without acute cor pulmonale (principal)
CPT/HCPCS: 82565; 84520; 78582; A9540; A9567; 71020; 99214

== ENCOUNTER 2017-03-15 14:19 | Emergency (ER) | payer BC, MEDICARE ==
[2017-03-15] MEDS ORDERED: SODIUM CHLORIDE 0.9% 500 ML IV STA (14:23)
[2017-03-15 14:43] LABS: Anisocytosis Slight; Basophils % (A) 0 %; Eosinophils # (A) 0.2 k/uL (0-0.7); Eosinophils % (A) 2 %; HCT 34.5 % (34.0-46.0); Lymphocytes # (A) 1.6 k/uL (1.0-4.8); Lymphocytes % (A) 18 %; MCH 29.6 pg (25.0-35.0); MCV 92.4 fL (80.0-100.0); Mean Platelet Volume 7.5; Monocytes # (A) 0.5 k/uL (0-1.0); Monocytes % (A) 5 %; Neutrophils # (A) 6.5 k/uL (1.3-7.7); Neutrophils % (A) 73 %; Platelet Count 294 k/uL (150-450); Poikilocytosis Slight; RBC 3.73 m/uL (3.80-5.40); RDW 16.6 % (11.5-15.5); WBC 8.9 k/uL (3.8-10.6)
[2017-03-15 15:02] LABS: ALT 36 U/L (9-52); AST 28 U/L (14-36); Albumin 3.1 g/dL (3.5-5.0); Alkaline Phosphatase 117 U/L (38-126); Anion Gap 13 mmol/L; Blood Urea Nitrogen 21 mg/dL (7-17); Calcium 8.9 mg/dL (8.4-10.2); Carbon Dioxide 20 mmol/L (22-30); Chloride 103 mmol/L (98-107); Glucose 337 mg/dL (74-99); Lipase 421 U/L (23-300); Magnesium 1.7 mg/dL (1.6-2.3); Phosphorus 2.7 mg/dL (2.5-4.5); Potassium 4.3 mmol/L (3.5-5.1); Sodium 136 mmol/L (137-145); Total Bilirubin 0.8 mg/dL (0.2-1.3); Total Protein 5.5 g/dL (6.3-8.2)
--- NOTE | 2017-03-15 15:05 | ED ---
Recheck HPI - General Chief Complaint: Recheck/Abnormal Lab/Rx Stated Complaint: High blood pressure Time Seen by Provider: 03/15/17 14:22 Source: patient, EMS Mode of arrival: EMS Limitations: no limitations - History of Present Illness Initial Comments: 77-year-old female with past medical history of type 2 diabetes is any for evaluation of hyperglycemia. She states that her home care nurse came to check on her and found her glucose to be 453. EMS was called and upon arrival he found her glucose at 399. She denies any associated symptoms of nausea, vomiting, fevers, chills, chest pain, shortness of breath. She did that she is at her baseline. She was admitted to [facility] on 03/07/2017 with blood sugars that were greater than 800 and was started on Lantus and NovoLog in addition to her glimepiride. She states she has not received her Lantus or NovoLog yet as they were being sent to her. Her PCP is Dr. Barlow and her feed mill supervisor is Dr. Narvaez. She has seen neither of them and didn't call them today. - Related Data Home Medications Medication Instructions Recorded Confirmed Diltiazem HCl [Diltiazem 24Hr ER] 180 mg PO DAILY 06/08/16 03/15/17 Glimepiride 3 mg PO DAILY 06/08/16 03/15/17 Montelukast [Singulair] 10 mg PO DAILY 06/08/16 03/15/17 Sertraline [Zoloft] 50 mg PO DAILY 06/08/16 03/15/17 Simvastatin [Zocor] 80 mg PO HS 06/08/16 03/15/17 Warfarin Sodium [Coumadin] 5 mg PO SUMOTUWETHSA 06/08/16 03/15/17 Albuterol Inhaler [Ventolin Hfa 2 puff INHALATION RT-QID PRN 03/15/17 03/15/17 Inhaler] Atenolol [Tenormin] 25 mg PO DAILY 03/15/17 03/15/17 Insulin Glargine,Hum.rec.anlog 30 unit SQ HS 03/15/17 03/15/17 [Lantus Solostar] Meloxicam [Mobic] 15 mg PO DAILY 03/15/17 03/15/17 Omeprazole 20 mg PO DAILY 03/15/17 03/15/17 Warfarin [Coumadin] 2.5 mg PO FR 03/15/17 03/15/17 Previous Rx's Medication Instructions Recorded Budesonide-Formot 160-4.5 Mcg 2 puff INHALATION RT-BID #1 inh 06/10/16 [Symbicort 160-4.5 Mcg Inhaler] Cephalexin [Keflex] 500 mg PO Q6HR #28 cap 03/15/17 Allergies Allergy/AdvReac Type Severity Reaction Status Date / Time No Known Allergies Allergy Verified 03/15/17 14:49 Review of Systems ROS Statement: Those systems with pertinent positive or pertinent negative responses have been documented in the HPI. ROS Other: All systems not noted in ROS Statement are negative. Constitutional: Denies: fever, chills Eyes: Denies: eye pain, eye discharge ENT: Denies: throat pain, epistaxis, congestion Respiratory: Reports: dyspnea (exertional and unchanged from baseline). Denies : cough, wheezes Cardiovascular: Reports: dyspnea on exertion. Denies: chest pain, syncope, paroxysmal nocturnal dyspnea Endocrine: Denies: fatigue, heat or cold intolerance, polydipsia, polyuria Gastrointestinal: Denies: abdominal pain, nausea, vomiting, diarrhea, constipation, hematemesis Genitourinary: Denies: urgency, dysuria Musculoskeletal: Denies: back pain, arthralgia, myalgia Skin: Denies: rash, lesions Neurological: Denies: headache, weakness, numbness, paresthesias Psychiatric: Denies: anxiety, depression Hematological/Lymphatic: Denies: easy bleeding, easy bruising Past Medical History Past Medical History: Asthma, COPD, Diabetes Mellitus, Hyperlipidemia, Hypertension, Osteoarthritis (OA) Additional Past Medical History / Comment(s): MAC DEGENERATION, "HEART BEATS FAST AT TIMES-I TAKE MEDICATION FOR IT" History of Any Multi-Drug Resistant Organisms: None Reported Past Surgical History: Appendectomy, Back Surgery, Joint Replacement Additional Past Surgical History / Comment(s): MARCIE KNEE REPALCMENTS, MARCIE CATARACTS, BLEPHROPLASTY Past Anesthesia/Blood Transfusion Reactions: No Reported Reaction Past Psychological History: No Psychological Hx Reported Smoking Status: Never smoker Past Alcohol Use History: None Reported Past Drug Use History: None Reported General Exam Limitations: no limitations General appearance: alert, in no apparent distress Head exam: Present: atraumatic, normocephalic, normal inspection Eye exam: Present: normal appearance, PERRL, EOMI. Absent: scleral icterus, conjunctival injection, periorbital swelling ENT exam: Present: normal exam, mucous membranes moist Neck exam: Present: normal inspection. Absent: tenderness, meningismus Respiratory exam: Present: normal lung sounds bilaterally. Absent: respiratory distress, wheezes, rales, rhonchi, stridor Cardiovascular Exam: Present: regular rate, normal rhythm, normal heart sounds. Absent: systolic murmur, diastolic murmur, rubs, gallop, clicks GI/Abdominal exam: Present: soft, normal bowel sounds. Absent: distended, tenderness, guarding, rebound, rigid Rectal exam: Present: deferred Extremities exam: Present: normal inspection, full ROM, normal capillary refill. Absent: tenderness, pedal edema, joint swelling, calf tenderness Back exam: Present: normal inspection, full ROM. Absent: tenderness Neurological exam: Present: alert, oriented X3, CN II-XII intact Psychiatric exam: Present: normal affect, normal mood Skin exam: Present: warm, dry, intact, normal color. Absent: rash Course Vital Signs 03/15/17 03/15/17 14:20 16:37 Temperature 97.7 F 98.1 F Pulse Rate 73 74 Respiratory 16 18 Rate Blood Pressure 104/50 112/59 O2 Sat by Pulse 95 96 Oximetry Medical Decision Making - Medical Decision Making 77-year-old female with past medical history as noted above presented for evaluation of hyperglycemia. Glucose prior to arrival to the ED was 453 and then 399 by EMS. On physical exam the patient is in no apparent distress and has no complaints. Lungs are clear to auscultation bilaterally and abdomen is soft and non-peritoneal without guarding rigidity or rebound. There is no lower extremity edema and mucous membranes are moist and nonerythematous. Given that the patient has not been taking her NovoLog and Lantus we'll rule out DKA. Labs significant for urinary tract infection the patient was given her first dose of antibiotics here in the department. Hyperglycemia continued to improve with IV fluids. There is also acute kidney injury however this is consistent with her baseline. Remainder of her labs showed no acute abnormalities. The patient was revaluated informed of all results. She stated that she continued to be a symptomatically. Discussed her medication situation and she stated that the actual concern was the carpenter of her medications. She could get the insulin in the syringe however due to her poor eyesight she would not be able to operate a syringe and bottle. She states that she has an appointment with her feed mill supervisor tomorrow and that they would be able to sort it out then. They're advised to keep this appointment as well as make an appointment with the primary care physician. Further given return instructions. The patient and her family acknowledged an understanding of all information provided and agreed with this plan of care. - Lab Data Result diagrams: 03/15/17 14:31 03/15/17 14:31 Lab Results 03/15/17 03/15/17 03/15/17 Range/Units 14:31 14:31 14:31 WBC 8.9 (3.8-10.6) k/uL RBC 3.73 L (3.80-5.40) m/uL Hgb 11.0 L (11.4-16.0) gm/dL Hct 34.5 (34.0-46.0) % MCV 92.4 (80.0-100.0) fL MCH 29.6 (25.0-35.0) pg MCHC 32.0 (31.0-37.0) g/dL RDW 16.6 H (11.5-15.5) % Plt Count 294 (150-450) k/uL Neutrophils % 73 % Lymphocytes % 18 % Monocytes % 5 % Eosinophils % 2 % Basophils % 0 % Neutrophils # 6.5 (1.3-7.7) k/uL Lymphocytes # 1.6 (1.0-4.8) k/uL Monocytes # 0.5 (0-1.0) k/uL Eosinophils # 0.2 (0-0.7) k/uL Basophils # 0.0 (0-0.2) k/uL Poikilocytosis Slight Anisocytosis Slight PT 20.1 H (9.0-12.0) sec INR 2.2 H (<1.2) Sodium 136 L (137-145) mmol/L Potassium 4.3 (3.5-5.1) mmol/L Chloride 103 (98-107) mmol/L Carbon Dioxide 20 L (22-30) mmol/L Anion Gap 13 mmol/L BUN 21 H (7-17) mg/dL Creatinine 1.56 H (0.52-1.04) mg/dL Est GFR (MDRD) Af Amer 39 (>60 ml/min/1.73 sqM) Est GFR (MDRD) Non-Af 32 (>60 ml/min/1.73 sqM) Glucose 337 H (74-99) mg/dL Calcium 8.9 (8.4-10.2) mg/dL Phosphorus 2.7 (2.5-4.5) mg/dL Magnesium 1.7 (1.6-2.3) mg/dL Total Bilirubin 0.8 (0.2-1.3) mg/dL AST 28 (14-36) U/L ALT 36 (9-52) U/L Alkaline Phosphatase 117 (38-126) U/L Total Protein 5.5 L (6.3-8.2) g/dL Albumin 3.1 L (3.5-5.0) g/dL Lipase 421 H (23-300) U/L Urine Color Urine Appearance (Clear) Urine pH (5.0-8.0) Ur Specific [place] (1.001-1.035) Urine Protein (Negative) Urine Glucose (UA) (Negative) Urine Ketones (Negative) Urine Blood (Negative) Urine Nitrite (Negative) Urine Bilirubin (Negative) Urine Urobilinogen (<2.0) mg/dL Ur Leukocyte Esterase (Negative) Urine WBC (0-5) /hpf Ur Squamous Epith Cells (0-4) /hpf Amorphous Sediment (None) /hpf Acetone, Qual Negative (Negative) 03/15/17 Range/Units 15:55 WBC (3.8-10.6) k/uL RBC (3.80-5.40) m/uL Hgb (11.4-16.0) gm/dL Hct (34.0-46.0) % MCV (80.0-100.0) fL MCH (25.0-35.0) pg MCHC (31.0-37.0) g/dL RDW (11.5-15.5) % Plt Count (150-450) k/uL Neutrophils % % Lymphocytes % % Monocytes % % Eosinophils % % Basophils % % Neutrophils # (1.3-7.7) k/uL Lymphocytes # (1.0-4.8) k/uL Monocytes # (0-1.0) k/uL Eosinophils # (0-0.7) k/uL Basophils # (0-0.2) k/uL Poikilocytosis Anisocytosis PT (9.0-12.0) sec INR (<1.2) Sodium (137-145) mmol/L Potassium (3.5-5.1) mmol/L Chloride (98-107) mmol/L Carbon Dioxide (22-30) mmol/L Anion Gap mmol/L BUN (7-17) mg/dL Creatinine (0.52-1.04) mg/dL Est GFR (MDRD) Af Amer (>60 ml/min/1.73 sqM) Est GFR (MDRD) Non-Af (>60 ml/min/1.73 sqM) Glucose (74-99) mg/dL Calcium (8.4-10.2) mg/dL Phosphorus (2.5-4.5) mg/dL Magnesium (1.6-2.3) mg/dL Total Bilirubin (0.2-1.3) mg/dL AST (14-36) U/L ALT (9-52) U/L Alkaline Phosphatase (38-126) U/L Total Protein (6.3-8.2) g/dL Albumin (3.5-5.0) g/dL Lipase (23-300) U/L Urine Color Yellow Urine Appearance Turbid H (Clear) Urine pH 5.0 (5.0-8.0) Ur Specific [place] 1.011 (1.001-1.035) Urine Protein 1+ H (Negative) Urine Glucose (UA) 1+ H (Negative) Urine Ketones Negative (Negative) Urine Blood Trace H (Negative) Urine Nitrite Negative (Negative) Urine Bilirubin Negative (Negative) Urine Urobilinogen 3.0 (<2.0) mg/dL Ur Leukocyte Esterase Large H (Negative) Urine WBC 153 H (0-5) /hpf Ur Squamous Epith Cells 5 H (0-4) /hpf Amorphous Sediment Rare H (None) /hpf Acetone, Qual (Negative) 03/15/17 15:00 Sinus rhythm with PACs and a ventricular rate of 75. Disposition Clinical Impression: UTI (urinary tract infection), Hyperglycemia Disposition: HOME SELF-CARE Condition: Stable Instructions: Urinary Tract Infection in Women (ED) Additional Instructions: Please use medication as discussed. Please follow up with family doctor if symptoms have not improved over the next two days. Please return to the emergency room if your symptoms increase or worsen or for any other concerns. Prescriptions: Cephalexin [Keflex] 500 mg PO Q6HR #28 cap Referrals: Elliot Barlow DO [Primary Care Provider] - 1-2 days Time of Disposition: 16:18
[2017-03-15 16:04] LABS: INR 2.2 (<1.2); Prothrombin Time 20.1 sec (9.0-12.0)
[2017-03-15 16:11] LABS: Amorphous Sediment,Urine Rare /hpf; Appearance,Urine Turbid (Clear); Bilirubin,Urine Negative (Negative); Blood,Urine Trace (Negative); Color,Urine Yellow; Glucose,Urine (UA) 1+ (Negative); Ketones,Urine Negative (Negative); Leukocyte Esterase,Urine Large (Negative); Nitrite,Urine Negative (Negative); Protein,Urine 1+ (Negative); Specific Gravity,Urine 1.011 (1.001-1.035); Squamous Epithelial Cell,Urine 5 /hpf (0-4); WBC,Urine 153 /hpf (0-5)
[2017-03-15] MEDS ORDERED: CEPHALEXIN 500 MG CAP PO STA (16:14)
[2017-03-15 16:38] VITALS: BP 112/59; PULSE 74; RESP 18; TEMP 98.1
== END 2017-03-15 16:42 | disposition home or self-care (01) ==
LOC: EC 14:19
DX: E11.65 Type 2 diabetes mellitus with hyperglycemia (principal); N39.0 Urinary tract infection, site not specified; J44.9 Chronic obstructive pulmonary disease, unspecified; E78.5 Hyperlipidemia, unspecified; I10 Essential (primary) hypertension; Z79.01 Long term (current) use of anticoagulants; Z79.899 Other long term (current) drug therapy; Z79.4 Long term (current) use of insulin
CPT/HCPCS: 36415; 80053; 81001; 82009; 83690; 83735; 84100; 85025; 85610; 93005; 99284

== ENCOUNTER → 2017-06-11 | Outpatient (CLI) | payer MEDICARE, BC ==
[2017-06-11 10:02] LABS: Albumin 3.7 g/dL (3.5-5.0); Calcium 9.5 mg/dL (8.4-10.2); Potassium 4.9 mmol/L (3.5-5.1); Total Bilirubin 0.3 mg/dL (0.2-1.3); Total Protein 6.2 g/dL (6.3-8.2)
[2017-06-11 20:41] LABS: Hemoglobin A1C 6.1 % (4.0-6.0)
== END | disposition home or self-care (01) ==
LOC: LABWHC1 09:14
PROVIDERS: ATTEND Internal Medicine Endocrinology, Diabetes & Metabolism
DX: E11.65 Type 2 diabetes mellitus with hyperglycemia (principal)
CPT/HCPCS: 36415; 80053; 80061; 82043; 82570; 83036